=== PATIENT | female | born 1970 | race Caucasian/White ===

== ENCOUNTER 2018-08-21 10:36 | Emergency (ER) | payer OTHER ==
[2018-08-21 10:51] VITALS: BP 159/91; PULSE 75; RESP 18; TEMP 98.9
--- NOTE | 2018-08-31 13:35 | ED ---
General Adult HPI - General Chief complaint: Recheck/Abnormal Lab/Rx Stated complaint: [facility] Time Seen by Provider: 08/21/18 11:05 Source: patient, RN notes reviewed Mode of arrival: ambulatory Limitations: no limitations - History of Present Illness Initial comments: 48-year-old female with a past medical history of orthopedic surgery, tonsillectomy presents to the emergency department for a chief complaint of lightheadedness. Patient states she has had a very stressful job recently. She states that she was stuck in the left hand thumb. 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 She states she did clean it out thoroughly for 20 minutes with water. She states she did not even want to be seen by her job made her come. Patient has no other complaints at this time including shortness of breath, chest pain, abdominal pain, nausea or vomiting, headache, or visual changes. - Related Data Home Medications Medication Instructions Recorded Confirmed Ibuprofen [Motrin Ib] 600 mg PO Q6H PRN 08/21/18 08/21/18 Allergies Allergy/AdvReac Type Severity Reaction Status Date / Time No Known Allergies Allergy Verified 08/21/18 11:37 Review of Systems ROS Statement: Those systems with pertinent positive or pertinent negative responses have been documented in the HPI. ROS Other: All systems not noted in ROS Statement are negative. Past Medical History Past Medical History: No Reported History History of Any Multi-Drug Resistant Organisms: None Reported Past Surgical History: No Surgical Hx Reported Past Psychological History: No Psychological Hx Reported Smoking Status: Current every day smoker Past Alcohol Use History: Occasional Past Drug Use History: None Reported General Exam Limitations: no limitations General appearance: alert, in no apparent distress Head exam: Present: atraumatic, normocephalic, normal inspection Eye exam: Present: normal appearance, PERRL, EOMI. Absent: scleral icterus, conjunctival injection, periorbital swelling ENT exam: Present: normal exam, mucous membranes moist Neck exam: Present: normal inspection Respiratory exam: Present: normal lung sounds bilaterally. Absent: respiratory distress, wheezes, rales, rhonchi, stridor Cardiovascular Exam: Present: regular rate, normal rhythm, normal heart sounds. Absent: systolic murmur, diastolic murmur, rubs, gallop, clicks Extremities exam: Present: full ROM (Full range of motion of all digits in the left hand), tenderness (No tenderness to any digits of the left hand), normal capillary refill (Capillary refill less than 2 seconds and radial pulse 2+ in the left upper extremity), other (Sensation intact in the left upper extremity. No lacerations, abrasions, or evidence of wounds noted to the left first digit or any other digits from needle.) Neurological exam: Present: alert, oriented X3, CN II-XII intact Psychiatric exam: Present: normal affect, normal mood Course Vital Signs 08/21/18 10:49 Temperature 98.9 F Pulse Rate 75 Respiratory 18 Rate Blood Pressure 159/91 O2 Sat by Pulse 97 Oximetry Medical Decision Making - Medical Decision Making 48-year-old female presents to the emergency department for a chief complaint of needle stick injury occurring approximately an hour prior to arrival. No evidence of this on exam however patient did clean out the area thoroughly before arrival. I did offer hepatitis C and HIV prophylaxis but patient does not want this. She did not bring blood with her. She states that the patient is an extended care facility patient and has no known history of transmittable diseases. She states she wants to go home quickly and only came because her job made her. Lab work was drawn and sent to the lab. Patient will return here if she has any worsening symptoms. Disposition Clinical Impression: Needle stick injury of finger Disposition: HOME SELF-CARE Condition: Good Instructions (If sedation given, give patient instructions): Needle Stick Injuries (ED) Additional Instructions: Please follow up with primary care in 1-2 days. Please return to the emergency department if you have any worsening symptoms. Is patient prescribed a controlled substance at d/c from ED?: No Referrals: Elsy Pritchard MD [Primary Care Provider] - 1-2 days Time of Disposition: 13:34
== END 2018-08-21 11:57 | disposition home or self-care (01) ==
LOC: EC 10:36
DX: R42 Dizziness and giddiness (principal); F17.200 Nicotine dependence, unspecified, uncomplicated; Z53.29 Procedure and treatment not carried out because of patient's decision for other reasons; W46.1XXA Contact with contaminated hypodermic needle, initial encounter
CPT/HCPCS: 99282

== ENCOUNTER → 2019-02-06 | Outpatient (CLI) | payer OTHER ==
--- NOTE | 2019-02-06 13:26 | XR ---
2 view abdomen HISTORY: Constipation 2 views the abdomen submitted No comparisons Lung bases show hyperinflation change, possible underlying COPD. There is no pneumoperitoneum or daniel l obstruction. Probable vascular calcification within the left hemipelvis. Bone mineralization is nor mal. IMPRESSION: Nonobstructive bowel gas pattern.
== END | disposition home or self-care (01) ==
LOC: RADXRYALE 10:12
PROVIDERS: ATTEND Physician Assistant Medical
DX: K63.89 Other specified diseases of intestine (principal)
CPT/HCPCS: 74019

== ENCOUNTER → 2019-02-06 | Outpatient (CLI) | payer OTHER ==
--- NOTE | 2019-02-06 14:06 | CT ---
EXAMINATION TYPE: CT abdomen pelvis w con DATE OF EXAM: 02/06/2019 COMPARISON: NONE HISTORY: 48-year-old female Lower abdominal pain and constipation. TECHNIQUE: Contiguous axial scanning of the abdomen and pelvis following administration of 100 ml Iso frances 300 IV contrast. Delayed images through the kidneys and coronal/sagittal reconstructions perform ed. CT DLP: 333.5 mGycm Automated exposure control for dose reduction was used. FINDINGS: Heart normal size without pericardial effusion. Lung bases clear without pleural effusion. Liver borderline in size at 17.1 cm. No focal lesion seen. Portal venous system is patent there is no biliary ductal dilatation. Small diverticulum of the second portion of the duodenum projecting into the pancreatic head region. Gallbladder, adrenal glands, kidneys with extrarenal pelves, spleen, and pancreas appear within flory l limits. Scattered prominent small bowel loops measuring up to 2.5 cm. No abnormally dilated small bowel loops . Numerous loops hanging low into the pelvis. Normal appendix. Generalized colonic diverticulosis with scattered mild stool. No pericolonic inflam matory change. No mesenteric or retroperitoneal lymphadenopathy. Bladder partially distended. Uterus is anteverted. Both ovaries are visualized. No abnormal fluid col lection in the pelvis or pelvic lymphadenopathy seen. Bones: Degenerative disc disease L5-S1. IMPRESSION: 1. GENERALIZED COLONIC DIVERTICULOSIS WITHOUT EVIDENCE FOR ACUTE DIVERTICULITIS. 2. NO SIGNIFICANT STOOL BURDEN. 3. SCATTERED PROMINENT SMALL BOWEL LOOPS MEASURING UP TO 2.5 CM. NO EVIDENCE FOR BOWEL OBSTRUCTION. C ORRELATE FOR POSSIBILITY OF MILD ENTERITIS.
== END | disposition home or self-care (01) ==
LOC: RADCTMAIN 11:49
PROVIDERS: ATTEND Physician Assistant Medical
DX: K57.30 Diverticulosis of large intestine without perforation or abscess without bleeding (principal); R13.10 Dysphagia, unspecified; R63.4 Abnormal weight loss
CPT/HCPCS: 74177; Q9967

== ENCOUNTER → 2024-10-10 | Outpatient (CLI) | payer BC ==
--- NOTE | 2024-10-10 11:48 | XR ---
EXAMINATION TYPE: XR thoracic spine complete DATE OF EXAM: 10/10/2024 11:35 AM COMPARISON: None CLINICAL INDICATION: Female, 54 years old with history of M54.9, pain TECHNIQUE: XR thoracic spine complete views of the spine in Frontal, swimmers and lateral projections . FINDINGS: No evidence of acute fracture. There is scattered multilevel disk space narrowing without loss of ve rtebral body height. There is normal alignment of the thoracic vertebral bodies. Scattered osteophyte formation along the anterior and lateral aspects of the vertebral bodies. Neural foramen are patent given limitations of this exam. Spinal canal appears patent. IMPRESSION: 1. No acute osseous pathology. 2. [id number] multilevel degeneration changes of the spine. [facility], , 10/10/2024 11:45 AM
== END | disposition home or self-care (01) ==
LOC: RADXRMAIN 11:04
PROVIDERS: ATTEND Nurse Practitioner Family
DX: M47.814 Spondylosis without myelopathy or radiculopathy, thoracic region (principal)
CPT/HCPCS: 72072